=== PATIENT | male | born 1980 | race Caucasian/White ===

== ENCOUNTER 2019-03-15 12:17 | Outpatient (CLI) | payer OTHER ==
--- NOTE | 2019-03-15 12:59 | RAD ---
EXAM: Chest PA and lateral: HISTORY: Cough. Symptoms x2 weeks COMPARISON: None. FINDINGS: Heart: Normal cardiac silhouette Aorta: Unremarkable Pulmonary vessels: Normal Costophrenic angles: Costophrenic angles are clear. Lungs: Lingular infiltrate. Pneumothorax: No pneumothorax Osseous structures: No osseous abnormalities IMPRESSION: Lingular infiltrate. Continued surveillance to ensure resolution.
--- NOTE | 2019-03-15 13:42 | RAD ---
SINUSES THREE VIEWS: 03/15/19 HISTORY: Allergic rhinitis. Cough x2 weeks. FINDINGS: Adequate aeration of the visualized paranasal sinuses and mastoid air cells. The visualized calvarium and facial bones are unremarkable. IMPRESSION: No radiographic evidence of significant sinus opacification. POS: OFF
== END 2019-03-15 12:18 | disposition home or self-care (01) ==
LOC: BICRAD 12:17
DX: J30.9 Allergic rhinitis, unspecified (principal); R05 Cough
CPT/HCPCS: 70220; 71046

== ENCOUNTER 2020-06-26 08:04 | Outpatient (CLI) | payer OTHER ==
--- NOTE | 2020-06-26 08:25 | RAD ---
EXAM: Chest 2 views: HISTORY: Reactive airways disease COMPARISON: 03/15/2019 FINDINGS: There is a normal-sized cardiomediastinal silhouette. The left hilar opacity likely represents gilberto l pulmonary vasculature. The previously seen left hilar infiltrate has resolved. There is no evidence of consolidation, mass, or pleural effusion. No acute osseous abnormality. IMPRESSION: No evidence of acute cardiopulmonary disease
== END 2020-06-26 08:05 | disposition home or self-care (01) ==
LOC: BICRAD 08:04
PROVIDERS: ATTEND Internal Medicine
DX: J45.909 Unspecified asthma, uncomplicated (principal)
CPT/HCPCS: 71046

== ENCOUNTER 2023-04-17 10:52 | Outpatient (CLI) | payer OTHER | END 2023-04-17 10:53 | disposition home or self-care (01) | LOC: BICMRI 10:52 | PROVIDERS: ATTEND Nurse Practitioner Family | DX: S46.211A Strain of muscle, fascia and tendon of other parts of biceps, right arm, initial encounter (principal) ==

== ENCOUNTER 2023-04-29 14:02 | Outpatient (CLI) | payer OTHER ==
[2023-04-29 15:24] LABS: #Basophils 0.1 10x3/uL (0.0-0.2); #Eosinphils 0.5 10x3/uL (0.0-0.5); #Monocytes 1.1 10x3/uL (0.0-1.1); %Basophils 0.6 % (0.0-2.0); %Eosinophils 4.3 % (0.0-6.0); %Lymphocytes 26.8 % (18.0-47.0); %Monocytes 10.4 % (0.0-10.0); %Neutrophils 57.2 % (40.0-75.0); Hematocrit 44.3 % (38.8-50.0); Hemoglobin 15.1 g/dL (13.5-17.5); Mean Corpuscular HGB CONC 34.1 g/dL (32.0-36.0); Mean Corpuscular Hemoglobin 29.3 pg (27.0-33.0); Mean Corpuscular Volume 85.9 fl (81.2-95.1); Mean Platelet Volume 11.3 fl (7.4-10.4); Platelet Count 313 10x3/uL (150-450); RBC Distribution Width 12.7 % (11.5-14.5); Red Blood Cell (RBC) Count 5.16 10x6/uL (4.32-5.72); White Blood Cell (WBC) Count 10.5 10x3/uL (3.5-10.5)
[2023-04-29 15:39] LABS: Anion Gap 12 mmol/L (10-20); BUN (Urea Nitrogen) 15 mg/dL (8.9-20.6); Calc. Creatinine Clearance 0 mL/min (70-130); Calcium 9.1 mg/dL (7.8-10.44); Carbon Dioxide 24 mmol/L (22-29); Chloride 108 mmol/L (98-107); Estimated GFR 77; Glucose 90 mg/dL (70-105); Potassium 4.1 mmol/L (3.5-5.1); Sodium 140 mmol/L (136-145)
== END 2023-04-29 14:03 | disposition home or self-care (01) ==
LOC: LABBT 14:02
PROVIDERS: ATTEND Orthopaedic Surgery
DX: Z01.818 Encounter for other preprocedural examination (principal); S46.211A Strain of muscle, fascia and tendon of other parts of biceps, right arm, initial encounter
CPT/HCPCS: 80048; 85025; 93005; 93010

== ENCOUNTER 2023-04-30 09:09 | Day surgery (SDC) | payer OTHER ==
[2023-04-28 14:22] VITALS: BMI 35.3
[2023-04-30] MEDS ORDERED: Bupivacaine PF 0.5% 30 ML VIAL ONE (09:21)
[2023-04-30] MEDS ORDERED: fentaNYL 50 mcg/mL 1 mL Vial ONE (09:21)
[2023-04-30] MEDS ORDERED: Midazolam HCl 2 mg/2 ml Vial ONE (09:21)
[2023-04-30] MEDS ORDERED: Lidocaine 1% (PF) 30 ML VIAL ONE (09:23)
[2023-04-30] MEDS ORDERED: fentaNYL PF 100 MCG/2 ML SYRINGE ONE (09:27)
[2023-04-30] MEDS ORDERED: Sodium Chloride 0.9% 100 ML ONE (10:15)
[2023-04-30] MEDS ORDERED: CEFAZOLIN 2 GM VIAL ONE (10:15)
[2023-04-30] MEDS ORDERED: Dexamethasone 20 MG/5 ML VIAL ONE (10:30)
[2023-04-30] MEDS ORDERED: PROPOFOL 200 MG/20 ML VIAL ONE (10:30)
[2023-04-30] MEDS ORDERED: Lidocaine 1% PF 5 ML VIAL ONE (10:30)
[2023-04-30] MEDS ORDERED: Ondansetron PF 4 MG/2 ML Vial ONE (10:30)
[2023-04-30] MEDS ORDERED: ePHEDrine Sulfate 50 MG/10 ML VIAL ONE (10:30)
[2023-04-30] MEDS ORDERED: Bupivacaine HCl 0.5%/Epinephrine 1:200,000/PF 30 ml Vial ONE (10:30)
[2023-04-30] MEDS ORDERED: Promethazine HCl 25 MG/ML VIAL IM PRN (11:00)
[2023-04-30] MEDS ORDERED: traMADol HCl 50 MG TAB PO PRN ×2 (11:00)
[2023-04-30] MEDS ORDERED: Zolpidem Tartrate 5 MG TAB PO PRN (11:00)
[2023-04-30] MEDS ORDERED: Ropivacaine 0.2% 550 ML 550 ML NERVE BLCK SCH (11:00)
[2023-04-30] MEDS ORDERED: Ondansetron PF 4 MG/2 ML Vial IVP PRN (11:00)
[2023-04-30] MEDS ORDERED: HYDROcodone/Acetaminophen 10/325 mg Tablet PO PRN ×2 (11:00)
[2023-04-30] MEDS ORDERED: Ketorolac Tromethamine 30 MG/ML VIAL IVP SCH (12:00)
[2023-04-30] MEDS ORDERED: HYDROcodone/Acetaminophen 5/325 mg Tablet ONE (13:38)
== END 2023-04-30 14:23 | disposition home or self-care (01) ==
LOC: SDC 09:09
PROVIDERS: ATTEND Orthopaedic Surgery
DX: S46.211A Strain of muscle, fascia and tendon of other parts of biceps, right arm, initial encounter (principal)
CPT/HCPCS: A4306; J1100; J2001; J2250; J2405; J2704; J2795; J3010; J3490; S0020